=== PATIENT | female | born 1970 | race Caucasian/White ===

== ENCOUNTER 2017-01-20 15:50 | Emergency (ER) | payer MEDICARE ==
[2017-01-20 19:23] LABS: HEMOGLOBIN 15.1 gm/dl (12.3-15.3); RED BLOOD COUNT 4.7 M/UL (4.00-5.10); WHITE BLOOD COUNT 16.7 K/UL (4.5-11.0)
[2017-01-20 19:45] LABS: BUN/CREATININE RATIO 24 (0-10)
== END 2017-01-20 23:26 | disposition home or self-care (01) ==
LOC: ER1 15:50
PROVIDERS: Family Medicine
DX: S39.012A Strain of muscle, fascia and tendon of lower back, initial encounter (principal); D72.829 Elevated white blood cell count, unspecified; F11.90 Opioid use, unspecified, uncomplicated; F12.90 Cannabis use, unspecified, uncomplicated; F17.200 Nicotine dependence, unspecified, uncomplicated; X58.XXXA Exposure to other specified factors, initial encounter; Y93.89 Activity, other specified; Y92.410 Unspecified street and highway as the place of occurrence of the external cause
CPT/HCPCS: 36415; 70450; 72125; 72131; 80053; 80307; 81001; 85025; 93005; 96374; 99284; G0480